=== PATIENT | male | born 1945 | race Caucasian/White ===

== ENCOUNTER 2018-11-06 11:30 | Emergency (ER) | payer OTHER, MEDICAID | END 2018-11-06 12:37 | disposition home or self-care (01) | LOC: E/R 11:30 | DX: L03.114 Cellulitis of left upper limb (principal); I10 Essential (primary) hypertension; Z86.73 Personal history of transient ischemic attack (TIA), and cerebral infarction without residual deficits; Z85.828 Personal history of other malignant neoplasm of skin; Z79.02 Long term (current) use of antithrombotics/antiplatelets | CPT/HCPCS: 99283 ==